=== PATIENT | female | born 1950 | race American Indian/Alaskan Native ===

== ENCOUNTER 2019-12-16 07:09 | Day surgery (SDC) | payer MEDICARE ==
[2019-12-16] MEDS ORDERED: SODIUM CHLORIDE 0.9% 1000 ML 1,000 ML IV SCH (08:30)
--- NOTE | 2019-12-16 08:57 | Anesthesia Consultation ---
Anesthesia Consult and Med Hx Date of service: 12/16/19 - Airway Anesthetic Teeth Evaluation: Good (some missing teeth) ROM Head & Neck: Adequate Mental/Hyoid Distance: Adequate Mallampati Class: Class III Intubation Access Assessment: Possibly Difficult - Pre-Operative Health Status ASA Pre-Surgery Classification: ASA3 Proposed Anesthetic Plan: MAC - Pulmonary Hx Smoking: Yes (former smoker) Hx Sleep Apnea: Yes (uses CPAP some nights) - Cardiovascular System Hx Hypertension: Yes Hx Cardia Arrhythmia: Yes (h/o irregular heart beats) - Central Nervous System Hx Back Pain: Yes - Gastrointestinal Hx Gastroesophageal Reflux Disease: Yes - Other Systems Hx Obesity: Yes (Morbid obesity BMI 52.9)
--- NOTE | 2019-12-16 09:22 | Anesthesia Day of Surgery ---
Anesthesia Day of Surgery - Day of Surgery Patient Examined: Yes Patient H&P Reviewed: Yes Patient is NPO: Yes
[2019-12-16] MEDS ORDERED: LIDOCAINE MPF (2%) 20 MG/1 ML VIAL 5 ML ONE (09:30)
[2019-12-16] MEDS ORDERED: propofoL 200 MG/20 ML VIAL IV ONE ×2 (09:48→09:49)
[2019-12-16] MEDS ORDERED: fentaNYL 100 MCG/2 ML INJ ONE (09:48)
--- NOTE | 2019-12-16 10:51 | Short Stay Summary ---
Short Stay Documentation Date of service: 12/16/19 Narrative H&P: The patient presents for EGD to evaluate refractory GERD sx and dysphagia and for colonoscopy due to a history of colon polyps. Last study 5 years ago. - History Past Medical History: hypertension, other (obesity) Past Surgical History: No surgical history Social history: no significant social history - Allergies and Medications Current Medications: Allergies No Known Allergies Allergy (Verified 12/16/19 08:16) Home Medications Medication Instructions Recorded Confirmed Last Taken Type Acetaminophen 650 mg PO DAILY 12/16/19 12/16/19 Unknown History Gabapentin 300 mg PO TID 12/16/19 12/16/19 12/15/19 History Myrbetriq 50 mg PO DAILY 12/16/19 12/16/19 12/09/19 History Spironolactone 50 mg PO DAILY 12/16/19 12/16/19 12/15/19 History Vitamin D3 1,000 UNIT TAB 1 tab PO DAILY 12/16/19 12/16/19 12/09/19 History amLODIPine 10 mg PO DAILY 12/16/19 12/16/19 12/16/19 History Active Medications Sodium Chloride (Nacl 0.9% 1000 Ml) 1,000 mls @ 50 mls/hr IV DIRECT STUART Last Admin: 12/16/19 08:59 Dose: 50 mls/hr Documented by: - Physical exam General appearance: no acute distress, well-nourished, obese Integumentary: no rash, no growths, no abnormal pigmentation HEENT: Atraumatic, PERRLA, EOMI, Mucous membr. moist/pink Lungs: Clear to auscultation, Normal air movement Breasts: deferred Heart: Regular rate, Normal S1, Normal S2, No murmurs Gastrointestinal: normoactive bowel sounds, no tenderness, no distended, no masses, no guarding, no organomegaly Female Genitourinary: deferred Rectal Exam: normal exam-external/orifice, no mass Extremities: no ischemia, pulses intact, pulses symmetrical, No edema, normal temperature, normal color, Full ROM Neurological: Normal gait, Normal speech, Strength at 5/5 X4 ext, Normal tone, Sensation intact, Cranial nerves 3-12 NL - Brief post op/procedure progress note Date of procedure: 12/16/19 Findings: see dictations Estimated blood loss: none Pathology: list (antral biopsies for h.pylori) Specimen disposition: to lab Condition: stable - Disposition Condition at discharge: Good Disposition: DC-01 TO HOME OR SELFCARE - Discharge Diagnoses (1) Epigastric abdominal pain Status: Acute (2) GERD (gastroesophageal reflux disease) Status: Acute (3) History of colon polyps Status: Acute Short Stay Discharge Plan Activity: other (no driving for 24 hours.) Weight Bearing Status: Weight Bear as Tolerated Diet: regular Follow up with: REZA MD [Other] - 7 Days
--- NOTE | 2019-12-16 11:01 | Operative Report ---
Operative Report Operative Report: Date of procedure: 12/16/2019 Procedure: Esophagogastroduodenoscopy with biopsies for H. pylori in the antrum and dilation of the esophagus by balloon Preprocedure diagnosis: Dysphagia and persistent reflux symptoms Post procedure diagnosis: Large hiatal hernia and Schatzki's ring Endoscopist: Dr. Dawson Anesthesia: Monitored anesthesia care per anesthesia department Medications: Propofol and fentanyl per anesthesia Estimated blood loss: (0) After careful discussion of the nature and purpose of the procedure as well as details the technique risks benefits and alternatives consent was obtained. The patient was placed in the left lateral decubitus position and medicated per anesthesia. The tip of the Olympus video scope was passed per orum under direct vision into the esophagus and advanced into the stomach and descending duodenum. The descending duodenum the duodenal bulb and pylorus were symmetrical and normal. The scope was withdrawn into the stomach and the stomach then gently insufflated with air. The antrum was normal. Biopsies were taken in the antrum for H. pylori. The stomach was further insufflated and the scope was then retroflexed and partially withdrawn. The fundus and body of the stomach were within normal limits and easily distensible. A moderately large hiatus hernia was present. The scope was then withdrawn in the forward position. The esophagogastric junction was at 38 centimeters. The Schatzki's ring was present at the EG junction. The esophageal body was normal throughout. The balloon was inserted through the scope and the esophagogastric junction dilated to 20 mm. The ring did not hug the balloon tightly. The procedure was was well tolerated and the patient was observed in recovery. Impressions: Schatzki's ring-nonobstructive. Status post empiric dilation to 20 mm by balloon. Large hiatus hernia. Plan: Await results of biopsies for H. pylori. Continue acid suppression therapy. Electronically signed: Scooter Dawson MD
--- NOTE | 2019-12-16 11:03 | Operative Report ---
Operative Report Operative Report: Date of procedure: 12/16/2019 Preprocedure diagnosis: History of colon polyps. Last study 5 years ago Post procedure diagnosis: Scattered diverticula throughout the left colon Procedure: Colonoscopy to the cecum Endoscopist: Dr. Dawson Anesthesia: Monitored anesthesia care per anesthesia department Estimated blood loss: 0 Medications: Monitored anesthesia care. See separate report by anesthesia for details. After careful discussion of the nature and purpose of the procedure as well as details of the technique risks benefits and alternatives the patient gave consent. Please see recent history and physical from the office. The patient was placed in the left lateral decubitus position and medicated per anesthesia. A rectal exam was performed sphincter tone was normal there were no masses palpable. The Olympus colonoscope was passed transanally and advanced under continuous direct vision without difficulty to the cecum. The colon was well prepared. The cecum was normal. The ascending colon was normal and on forward and retroflexed views. The transverse colon is normal. There were scattered diverticula in the descending and sigmoid colon. The rectum was normal on forward and retroflexed views. The procedure was well-tolerated overall and the patient was observed in recovery. Conclusions: Colon diverticulosis, no recurrent polyps. Plan: Repeat colonoscopy in 5 years Signed electronically: Scooter Dawson M.D.
[2019-12-16 11:28] VITALS: BP 129/70
== END 2019-12-16 07:10 | disposition home or self-care (01) ==
LOC: GIO 07:09
PROVIDERS: ATTEND Internal Medicine Gastroenterology
DX: Z12.11 Encounter for screening for malignant neoplasm of colon (principal); K57.30 Diverticulosis of large intestine without perforation or abscess without bleeding; R13.10 Dysphagia, unspecified; K21.9 Gastro-esophageal reflux disease without esophagitis; K44.9 Diaphragmatic hernia without obstruction or gangrene; K31.89 Other diseases of stomach and duodenum; Z86.010 Personal history of colon polyps; I42.9 Cardiomyopathy, unspecified; I10 Essential (primary) hypertension; E66.01 Morbid (severe) obesity due to excess calories; G47.30 Sleep apnea, unspecified; Z68.43 Body mass index [BMI] 50.0-59.9, adult; Z90.710 Acquired absence of both cervix and uterus; Z98.891 History of uterine scar from previous surgery; Z98.890 Other specified postprocedural states; Z79.899 Other long term (current) drug therapy; Z82.49 Family history of ischemic heart disease and other diseases of the circulatory system
CPT/HCPCS: 43239; 43249; 88305; 88342; C1726; G0105; J2704; J3010; J7030